=== PATIENT | male | born 1950 | race Caucasian/White ===

== ENCOUNTER 2019-08-11 08:52 | Emergency (ER) | payer OTHER, SELFPAY ==
[~2019-08-11] VITALS: Ht 177.8 cm; Wt 101.6 kg
[2019-08-11 09:22] VITALS: Ht 177.8 cm; Wt 101.6 kg
[2019-08-11 10:09] LABS: BASOPHIL % 0.2 % (0-2); RED CELL DISTRIBUTION WIDTH 12.7 % (11.5-14.5)
[2019-08-11 10:11] LABS: PLATELET COUNT 82 x10^3mcL (130-400)
[2019-08-11 10:20] LABS: CALCIUM 8.8 mg/dL (8.5-10.1); CARBON DIOXIDE 23.4 mmol/L (21-32); CHLORIDE SERUM 92 mmol/L (98-107); CREATININE SERUM 1.1 mg/dL (0.7-1.3); GLUCOSE SERUM 118 mg/dL (74-106); POTASSIUM SERUM 3.2 mmol/L (3.5-5.1); SODIUM SERUM 128 mmol/L (136-145)
[2019-08-11 10:27] LABS: ALBUMIN 3.6 g/dL (3.4-5.0); ALKALINE PHOSPHATASE 78 U/L (46-116); ALT/SGPT 64 U/L (16-63); AST/SGOT 76 U/L (15-37); BILIRUBIN TOTAL 1.1 mg/dL (0.20-1.00); C REACTIVE PROTEIN 3.4 mg/dL (<=0.9); LACTIC DEHYDROGENASE (LDH) 278 U/L (100-190)
[2019-08-11 10:29] LABS: TOTAL PROTEIN, SERUM 9.2 g/dL (6.4-8.2)
[2019-08-11 10:33] LABS: FREE T4 1.24 ng/dL (0.76-1.46); FREE THYROXINE INDEX 3.1 ug/dL (1.4-4.5); T4(THYROXINE) 8.9 ug/dL (4.7-13.3)
[2019-08-11 12:24] LABS: UA SPECIFIC GRAVITY 1.015 (1.005-1.035); microscopic required? YES; urine erythrocyte NEGATIVE (NEGATIVE)
[2019-08-11 15:48] VITALS: BP 133/72
[2019-08-12 10:18] LABS: T3 TOTAL 1.01 ng/mL
== END 2019-08-11 15:48 | disposition home or self-care (01) ==
LOC: ED 08:52
PROVIDERS: Specialist
DX: U07.1 COVID-19 (principal); J12.89 Other viral pneumonia; E87.1 Hypo-osmolality and hyponatremia; E87.6 Hypokalemia; I10 Essential (primary) hypertension
CPT/HCPCS: 36600; 83880; 84439; 85378; 87804; J0456; J0696; Q9967; U0003-CS